=== PATIENT | male | born 1980 | race Caucasian/White ===

== ENCOUNTER 2021-03-01 14:20 | Inpatient (IN) ==
[2021-03-01] MEDS ORDERED: *HR* LORazepam 2 MG/ML VIAL IVP ONE ×2 (14:48→15:37)
[2021-03-01] MEDS ORDERED: 0.9 % Sodium Chloride 1,000 ML IVC ONE (14:48)
[2021-03-01 15:04] LABS: Hematocrit 44.2 % (37.5-50.1); Hemoglobin 14.7 g/dL (12.9-16.9); Mean Corpuscular HGB Conc 33.3 g/dL (31.6-35.5); Mean Corpuscular Hemoglobin 33.3 pg (28.0-33.3); Mean Platelet Volume 10.5 fL (9.4-12.4); Nucleated Red Blood Cells 0.6 /100 WBC (0); Platelet Count 448 K/mcL (140-400); Red Blood Count 4.42 M/mcL (4.19-5.50); Red Cell Distribution Width 14.1 % (11.5-14.5); White Blood Count 21.1 K/mcL (4.3-11.1)
[2021-03-01 15:26] LABS: Acetaminophen 117 mcg/mL (10-20); Alanine Aminotransferase 42 Units/L (7-52); Albumin/Globulin Ratio 1.5 (1.1-2.2); Alkaline Phosphatase 114 Units/L (34-104); Aspartate Amino Transferase 16 Units/L (13-39); BUN/Creatinine Ratio 14 (6-26); Bilirubin,Direct 0.1 mg/dL (0.0-0.2); Bilirubin,Indirect 0.1 mg/dL (0.0-1.0); Bilirubin,Total 0.2 mg/dL (0.3-1.0); Blood Urea Nitrogen 14 mg/dL (6-20); Calcium 9.2 mg/dL (8.6-10.3); Carbon Dioxide 19 mEq/L (23-29); Chloride 107 mEq/L (98-107); Ethanol < 10 mg/dL (Less than 10); Globulin 2.7 g/dL (2.4-3.5); Glucose 150 mg/dL (70-105); Osmolality,Calculated 297 (280-300); Potassium 3.5 mEq/L (3.5-5.1); Salicylate < 2.5 mg/dL (15.0-30.0); Sodium 142 mEq/L (136-145); Total Protein 6.7 g/dL (6.4-8.9); eGFR For African Americans > 60 (> 60); eGFR For Non-African Americans > 60 (> 60)
[2021-03-01] MEDS ORDERED: 0.9 % Sodium Chloride 1,000 ML IV ONE (15:27)
[2021-03-01 15:35] LABS: Basophils # 0.4 K/mcL (0.0-0.2); Lymphocytes # 6.3 K/mcL (0.6-4.6); Monocytes # 0.8 K/mcL (0.0-1.3); Neutrophils # 12.2 K/mcL (1.6-8.9); Platelet Estimate Increased (Normal); Reactive Lymphocytes Present (Not Present)
[2021-03-01 16:10] LABS: Bilirubin,Urine Negative (Negative); Blood,Urine Negative (Negative); Clarity,Urine Clear (Clear); Color,Urine Colorless (Yellow); Glucose,Urine (UA) Normal (Normal); Ketones,Urine Negative (Negative); Leukocyte Esterase,Urine Negative (Negative); Nitrite,Urine Negative (Negative); PH,Urine 5.5 pH Units (5.0-8.0); Protein,Urine Negative (Neg-Trace); Specific Gravity,Urine 1.008 (1.010-1.025); Urobilinogen,Urine Normal (Normal)
[2021-03-01 16:10] LABS: Creatine Kinase 42 Units/L (30-223)
[2021-03-01 16:21] LABS: Amphetamine Screen,Urine Negative ng/mL (Cutoff=1000); Barbiturate Screen,Urine Negative ng/mL (Cutoff=200); Benzodiazepines Screen,Urine Negative ng/mL (Cutoff=200); Cannabinoid Screen,Urine Negative ng/mL (Cutoff = 50); Cocaine Screen,Urine Negative ng/mL (Cutoff= 300); Opiate Screen,Urine Negative ng/mL (Cutoff=300); Phencyclidine Screen,Urine Negative ng/mL (Cutoff=25)
[2021-03-01 16:39] LABS: Thyroid Stimulating Hormone 2.718 mcIU/mL (0.340-5.600)
[2021-03-01] MEDS ORDERED: Naloxone 0.4 MG/ML INJ IVP PRN (19:48)
[2021-03-01] MEDS ORDERED: *HR* LORazepam 2 MG/ML VIAL IVP PRN ×3 (19:57)
[2021-03-01] MEDS ORDERED: 0.9 % Sodium Chloride 1,000 ML IVC SCH (20:00)
[2021-03-02] MEDS: *HR* Heparin 5,000 UNIT/ML VIAL SQ SCH ×2 (01:56→18:29)
[2021-03-02 07:13] LABS: Hematocrit 39.8 % (37.5-50.1); Hemoglobin 13.3 g/dL (12.9-16.9); Mean Corpuscular HGB Conc 33.4 g/dL (31.6-35.5); Mean Corpuscular Hemoglobin 33.7 pg (28.0-33.3); Mean Corpuscular Volume 100.8 fL (83.0-100.0); Mean Platelet Volume 10.4 fL (9.4-12.4); Platelet Count 348 K/mcL (140-400); Red Blood Count 3.95 M/mcL (4.19-5.50); Red Cell Distribution Width 14.9 % (11.5-14.5); White Blood Count 13.8 K/mcL (4.3-11.1)
[2021-03-02 07:31] LABS: Alanine Aminotransferase 30 Units/L (7-52); Albumin 3.5 g/dL (3.5-5.7); Albumin/Globulin Ratio 1.5 (1.1-2.2); Alkaline Phosphatase 89 Units/L (34-104); Aspartate Amino Transferase 14 Units/L (13-39); BUN/Creatinine Ratio 12 (6-26); Bilirubin,Total 0.3 mg/dL (0.3-1.0); Blood Urea Nitrogen 12 mg/dL (6-20); Calcium 8.5 mg/dL (8.6-10.3); Carbon Dioxide 22 mEq/L (23-29); Chloride 116 mEq/L (98-107); Globulin 2.3 g/dL (2.4-3.5); Glucose 85 mg/dL (70-105); Osmolality,Calculated 299 (280-300); Potassium 3.7 mEq/L (3.5-5.1); Sodium 145 mEq/L (136-145); Total Protein 5.8 g/dL (6.4-8.9); eGFR For African Americans > 60 (> 60); eGFR For Non-African Americans > 60 (> 60)
[2021-03-02] MEDS: Dexmedetomidine HCl 400 MCG/100 ML MLS IVC SCH ×2 (13:08→21:13)
[2021-03-02] MEDS ORDERED: Haloperidol Lactate 5 MG/ML VIAL IM ONE (16:52)
[2021-03-02] MEDS: Nicotine 21 MG PATCH.TD24 TD SCH (18:29)
[2021-03-03] MEDS: *HR* Heparin 5,000 UNIT/ML VIAL SQ SCH ×4 (01:42→21:35)
[2021-03-03] MEDS: Dexmedetomidine HCl 400 MCG/100 ML MLS IVC SCH (04:53)
[2021-03-03 05:32] LABS: Hematocrit 42.3 % (37.5-50.1); Hemoglobin 14.1 g/dL (12.9-16.9); Mean Corpuscular HGB Conc 33.3 g/dL (31.6-35.5); Mean Corpuscular Hemoglobin 33.3 pg (28.0-33.3); Mean Platelet Volume 10.3 fL (9.4-12.4); Platelet Count 335 K/mcL (140-400); Red Blood Count 4.23 M/mcL (4.19-5.50); Red Cell Distribution Width 14.8 % (11.5-14.5); White Blood Count 14.3 K/mcL (4.3-11.1)
[2021-03-03 05:49] LABS: Albumin 3.6 g/dL (3.5-5.7); Albumin/Globulin Ratio 1.6 (1.1-2.2); Bilirubin,Direct 0.1 mg/dL (0.0-0.2); Bilirubin,Indirect 0.2 mg/dL (0.0-1.0); Bilirubin,Total 0.3 mg/dL (0.3-1.0); Globulin 2.3 g/dL (2.4-3.5); Total Protein 5.9 g/dL (6.4-8.9)
[2021-03-03 05:50] LABS: BUN/Creatinine Ratio 17 (6-26); Blood Urea Nitrogen 14 mg/dL (6-20); Calcium 8.6 mg/dL (8.6-10.3); Carbon Dioxide 22 mEq/L (23-29); Chloride 109 mEq/L (98-107); Glucose 86 mg/dL (70-105); Osmolality,Calculated 288 (280-300); Potassium 3.4 mEq/L (3.5-5.1); Sodium 139 mEq/L (136-145); eGFR For African Americans > 60 (> 60); eGFR For Non-African Americans > 60 (> 60)
[2021-03-03] MEDS: Nicotine 21 MG PATCH.TD24 TD SCH ×2 (10:31→21:51)
[2021-03-03] MEDS: dexAMETHasone 4 MG TABLET PO SCH (10:31)
[2021-03-03] MEDS: OLANZapine 5 MG TAB.RAPDIS PO SCH (10:31)
[2021-03-03] MEDS: Haloperidol Lactate 5 MG/ML VIAL IVP SCH ×2 (12:49→21:34)
[2021-03-03] MEDS: *HR* LORazepam 2 MG/ML VIAL IVP PRN ×2 (16:50→23:44)
[2021-03-03] MEDS: Melatonin 3 MG TABLET PO PRN (21:34)
[2021-03-04] MEDS: Haloperidol Lactate 5 MG/ML VIAL IVP SCH ×4 (01:32→20:45)
[2021-03-04] MEDS: *HR* Heparin 5,000 UNIT/ML VIAL SQ SCH ×2 (05:54→13:30)
[2021-03-04] MEDS ORDERED: Ketorolac 15 MG/ML VIAL IVP ONE ×2 (07:47→20:28)
[2021-03-04] MEDS: Nicotine 21 MG PATCH.TD24 TD SCH (08:14)
[2021-03-04] MEDS: OLANZapine 5 MG TAB.RAPDIS PO SCH (08:14)
[2021-03-04] MEDS: dexAMETHasone 4 MG TABLET PO SCH (08:14)
[2021-03-04] MEDS: diazePAM 5 MG TABLET PO PRN (13:30)
[2021-03-04] MEDS: Melatonin 3 MG TABLET PO PRN (20:52)
[2021-03-05] MEDS: diazePAM 5 MG TABLET PO PRN (01:40)
[2021-03-05 04:15] LABS: Valproate Free <7 ug/mL (7-23)
[2021-03-05] MEDS: Haloperidol Lactate 5 MG/ML VIAL IVP SCH ×2 (04:30→05:56)
[2021-03-05] MEDS: *HR* Heparin 5,000 UNIT/ML VIAL SQ SCH ×2 (04:30→05:56)
[2021-03-05] MEDS: dexAMETHasone 4 MG TABLET PO SCH (07:44)
[2021-03-05] MEDS: OLANZapine 5 MG TAB.RAPDIS PO SCH (07:44)
[2021-03-05] MEDS: Nicotine 21 MG PATCH.TD24 TD SCH (07:44)
[2021-03-05 07:57] VITALS: BP 140/101; PULSE 74; TEMP 97.5; O2SAT 95
[2021-03-05 09:48] LABS: Hematocrit 44.1 % (37.5-50.1); Hemoglobin 14.8 g/dL (12.9-16.9); Mean Corpuscular HGB Conc 33.6 g/dL (31.6-35.5); Mean Corpuscular Hemoglobin 33.3 pg (28.0-33.3); Mean Corpuscular Volume 99.3 fL (83.0-100.0); Mean Platelet Volume 10.3 fL (9.4-12.4); Nucleated Red Blood Cells 0.1 /100 WBC (0); Platelet Count 283 K/mcL (140-400); Red Blood Count 4.44 M/mcL (4.19-5.50); Red Cell Distribution Width 15.2 % (11.5-14.5); White Blood Count 20.7 K/mcL (4.3-11.1)
[2021-03-05 10:48] LABS: Basophils # 0.4 K/mcL (0.0-0.2); Lymphocytes # 2.9 K/mcL (0.6-4.6); Monocytes # 0.8 K/mcL (0.0-1.3); Neutrophils # 13.7 K/mcL (1.6-8.9)
[2021-03-05 10:51] LABS: Platelet Estimate Normal (Normal); Smudge Cells Present (Not Present)
[2021-03-05 10:51] LABS: Valproate Total <7 ug/mL (50-125)
[2021-03-05 11:15] LABS: BUN/Creatinine Ratio 7 (6-26); Blood Urea Nitrogen 7 mg/dL (6-20); Carbon Dioxide 21 mEq/L (23-29); Chloride 108 mEq/L (98-107); Glucose 120 mg/dL (70-105); Magnesium 1.8 mg/dL (1.6-2.6); Osmolality,Calculated 289 (280-300); Phosphorous 3.4 mg/dL (2.7-4.5); Potassium 3.4 mEq/L (3.5-5.1); Sodium 140 mEq/L (136-145); eGFR For African Americans > 60 (> 60); eGFR For Non-African Americans > 60 (> 60)
== END 2021-03-05 10:29 | disposition home or self-care (01) | DRG 917 ==
LOC: EMEROOARM 14:20 → 3NENU 14:20 → SUATTDRO 19:47 → 3NENU 21:30
PROVIDERS: ADMIT Family Medicine; ATTEND Internal Medicine

== ENCOUNTER 2021-03-12 16:21 | Inpatient (IN) ==
[2021-03-12] MEDS ORDERED: Isovue-370 500 ML BOTTLE IVP ONE (16:42)
[2021-03-12 16:59] LABS: Hematocrit 45.1 % (37.5-50.1); Hemoglobin 15.2 g/dL (12.9-16.9); Mean Corpuscular HGB Conc 33.7 g/dL (31.6-35.5); Mean Corpuscular Hemoglobin 33.7 pg (28.0-33.3); Mean Platelet Volume 11.5 fL (9.4-12.4); Platelet Count 200 K/mcL (140-400); Red Blood Count 4.51 M/mcL (4.19-5.50); Red Cell Distribution Width 15.2 % (11.5-14.5)
[2021-03-12 17:03] LABS: White Blood Count 30.2 K/mcL (4.3-11.1)
[2021-03-12 17:21] LABS: Acetaminophen < 10 mcg/mL (10-20); BUN/Creatinine Ratio 18 (6-26); Blood Urea Nitrogen 12 mg/dL (6-20); Carbon Dioxide 24 mEq/L (23-29); Chloride 103 mEq/L (98-107); Glucose 106 mg/dL (70-105); Large Platelets Present (Not Present); Lymphocytes # 1.2 K/mcL (0.6-4.6); Monocytes # 0.6 K/mcL (0.0-1.3); Neutrophils # 28.4 K/mcL (1.6-8.9); Osmolality,Calculated 282 (280-300); Platelet Estimate Normal (Normal); Potassium 3.7 mEq/L (3.5-5.1); Salicylate < 2.5 mg/dL (15.0-30.0); Sodium 136 mEq/L (136-145); eGFR For African Americans > 60 (> 60); eGFR For Non-African Americans > 60 (> 60)
[2021-03-12 17:44] LABS: Ethanol < 10 mg/dL (Less than 10)
[2021-03-12] MEDS ORDERED: Ziprasidone 20 MG, Closed System Device IM Kit 1 EACH in Water for inj. (sterile) 1 ML IM ONE (17:50)
[2021-03-12] MEDS ORDERED: Ziprasidone 20 MG/VIAL VIAL IM ONE (17:52)
[2021-03-12] MEDS ORDERED: Water for inj. (sterile) 10 ML ONE (17:52)
[2021-03-12 18:29] LABS: Bilirubin,Urine Negative (Negative); Blood,Urine Negative (Negative); Clarity,Urine Clear (Clear); Color,Urine Light-Yellow (Yellow); Glucose,Urine (UA) Normal (Normal); Ketones,Urine Negative (Negative); Leukocyte Esterase,Urine Negative (Negative); Nitrite,Urine Negative (Negative); Protein,Urine Negative (Neg-Trace); Urobilinogen,Urine Normal (Normal)
[2021-03-12 18:42] LABS: Amphetamine Screen,Urine Negative ng/mL (Cutoff=1000); Barbiturate Screen,Urine Negative ng/mL (Cutoff=200); Benzodiazepines Screen,Urine Negative ng/mL (Cutoff=200); Cannabinoid Screen,Urine Positive ng/mL (Cutoff = 50); Cocaine Screen,Urine Negative ng/mL (Cutoff= 300); Opiate Screen,Urine Negative ng/mL (Cutoff=300); Phencyclidine Screen,Urine Negative ng/mL (Cutoff=25)
[2021-03-12] MEDS ORDERED: *HR* LORazepam 2 MG/ML VIAL IM ONE (18:43)
[2021-03-13 06:16] LABS: Influenza A PCR Negative (Negative); Influenza B PCR Negative (Negative); Resp. Syncytial Virus PCR Negative (Negative)
[2021-03-13 06:17] LABS: SARS-CoV-2 by PCR (In House) Negative (Negative)
[2021-03-13] MEDS ORDERED: Acetaminophen 325 MG TABLET PO PRN (08:01)
[2021-03-13] MEDS ORDERED: haloperidoL 5 MG TABLET PO PRN (08:01)
[2021-03-13] MEDS ORDERED: *HR* LORazepam 2 MG/ML VIAL IM PRN (08:01)
[2021-03-13] MEDS ORDERED: *HR* LORazepam 1 MG TABLET PO PRN (08:01)
[2021-03-13] MEDS ORDERED: Haloperidol Lactate 5 MG/ML VIAL IM PRN (08:01)
[2021-03-13] MEDS: Divalproex (12 HR) 500 MG TABLET PO SCH ×2 (12:36→20:12)
[2021-03-13] MEDS: Nicotine 21 MG PATCH.TD24 TD SCH (12:37)
[2021-03-13] MEDS: traZODone 50 MG TABLET PO PRN (20:12)
[2021-03-13] MEDS: hydrOXYzine pamoate 25 MG CAPSULE PO PRN (20:12)
[2021-03-14] MEDS: Divalproex (12 HR) 500 MG TABLET PO SCH ×2 (09:18→20:44)
[2021-03-14] MEDS: Nicotine 21 MG PATCH.TD24 TD SCH (09:18)
[2021-03-14] MEDS: traZODone 50 MG TABLET PO PRN (20:44)
[2021-03-14] MEDS: hydrOXYzine pamoate 25 MG CAPSULE PO PRN (20:44)
[2021-03-15] MEDS: Divalproex (12 HR) 500 MG TABLET PO SCH ×2 (08:38→20:27)
[2021-03-15] MEDS: Nicotine 21 MG PATCH.TD24 TD SCH (08:38)
[2021-03-15] MEDS ORDERED: Haloperidol Lactate 5 MG/ML VIAL IM ONE (09:25)
[2021-03-15] MEDS ORDERED: *HR* LORazepam 2 MG/ML VIAL IM PRN (09:28)
[2021-03-15] MEDS: hydrOXYzine pamoate 25 MG CAPSULE PO PRN (20:27)
[2021-03-15] MEDS: traZODone 50 MG TABLET PO PRN (20:27)
[2021-03-16] MEDS: Nicotine 21 MG PATCH.TD24 TD SCH (08:21)
[2021-03-16] MEDS: Divalproex (12 HR) 500 MG TABLET PO SCH ×2 (08:21→20:22)
[2021-03-16] MEDS: hydrOXYzine pamoate 25 MG CAPSULE PO PRN (20:22)
[2021-03-16] MEDS: traZODone 50 MG TABLET PO PRN (20:22)
[2021-03-17] MEDS: Divalproex (12 HR) 500 MG TABLET PO SCH (08:16)
[2021-03-17] MEDS: Nicotine 21 MG PATCH.TD24 TD SCH (08:17)
[2021-03-17 09:48] VITALS: BP 120/86; PULSE 111; TEMP 97.6; O2SAT 97
== END 2021-03-17 12:10 | disposition home or self-care (01) | DRG 885 ==
LOC: EMEROOARM 16:21 → 1ANU 03-13 07:42
PROVIDERS: ADMIT Psychiatry & Neurology Psychiatry; ATTEND Psychiatry & Neurology Psychiatry